=== PATIENT | female | born 1995 | race Caucasian/White ===

== ENCOUNTER 2020-12-21 22:15 | Outpatient (CLI) | payer MEDICAID, SELFPAY ==
[2020-12-21 22:15] VITALS: BMI 27.6
[2020-12-21 22:41] VITALS: TEMP 37.3
[2020-12-21 22:42] VITALS: BP 117/67; PULSE 94
--- NOTE | 2020-12-21 23:01 | USR_ITS ---
PROCEDURE INFORMATION: Exam: US , Limited Exam date and time: 12/21/2020 11:21 PM Age: 25 years old Clinical indication: complicated by abdominal or pelvic pain; Lower; Third trimester; Gestational age or lmp: 37 week 5 days; ; Additional info: Check caitie only TECHNIQUE: Imaging protocol: Real-time ultrasound of the maternal uterus with image documentation. Exam focused on the clinical indication. COMPARISON: US OB 1st Trimest <14 Wk [id number] 02/08/2014 8:03 PM FINDINGS: Gestation: A single viable intrauterine gestation is present. presentation: Cephalic presentation. heart rate: heart rate equals 160 BPM. Placenta: Grade 2 placenta located anteriorly. Amniotic fluid index: CAITIE equals 6.5 cm. MATERNAL: Cervix: The cervix measures 3.5 cm in length. US/US OB limited [id number] IMPRESSION: 1. Single intrauterine fetus in the cephalic position with a heart rate of 160 BPM. 2. The CAITIE is low at 6.5 cm.
[2020-12-21 23:12] LABS: Nitrazine Paper, PH Negative
[2020-12-21 23:35] VITALS: BP 102/55; PULSE 77
[2020-12-22] VITALS: RESP 16; TEMP 36.7
[2020-12-22 00:15] VITALS: BP 102/55; PULSE 77; RESP 16; TEMP 36.7
--- NOTE | 2020-12-22 15:13 | PM.ACPR ---
Procedure/Consent Procedure Narrative: NONSTRESS TEST: Place of test: [facility]-L&D Indication: 25-year-old 3 para 2-0-0-2 at 37 weeks Date and time of test: 12/21/2020-11:30 PM Baseline: 135 Variability: moderate variability Accelerations: Accelerations present Decelerations: No decelerations Tocometry: No contractions INTERPRETATION: NST reactive, continue kick counts
== END 2020-12-22 00:15 | disposition home or self-care (01) ==
LOC: OPOB 22:18 → OBGYN 12-22 00:07
PROVIDERS: Obstetrics & Gynecology; Visit Provider Obstetrics & Gynecology
DX: O26.899 Other specified pregnancy related conditions, unspecified trimester (principal); Z3A.00 Weeks of gestation of pregnancy not specified; N89.8 Other specified noninflammatory disorders of vagina; R10.9 Unspecified abdominal pain
CPT/HCPCS: 59025; 76815; 83986; 99211

== ENCOUNTER 2020-12-30 07:20 | Inpatient (IN) | payer MEDICAID, SELFPAY ==
[2020-12-30] VITALS (51 sets, daily range): BP systolic 100–140; BP diastolic 53–79; PULSE 51–88; RESP 16; TEMP 35.9–37; O2SAT 92–100; BMI 28.3
[2020-12-30] MEDS: lactated ringers 1,000 ML 999 ML IV ×2 (07:27→08:47)
[2020-12-30] MEDS: ampicillin 2,000 MG in sodium chloride 0.9% (plus) 50 ML 100 MG IV (07:34)
[2020-12-30 07:43] LABS: Basophils # 0.1 10^3/uL (0.0-0.1); Basophils % 0.3 %; Eosinophils # 0.1 10^3/uL (0.0-0.8); Eosinophils % 0.8 %; Hemoglobin 12.3 g/dL (11.5-15.3); Lymphocytes # 2.1 10^3/uL (0.8-4.8); Lymphocytes % 12.4 %; Mean Corpuscular HGB Conc 32.4 g/dL (30.0-36.0); Mean Corpuscular Hemoglobin 29.9 pg (28.0-34.0); Mean Corpuscular Volume 92.5 fL (81-99); Mean Platelet Volume 9.7 fL (7.4-10.4); Monocytes # 0.9 10^3/uL (0.2-0.9); Monocytes % 5.5 %; Neutrophils # 13.71 10^3/uL (1.8-7.7); Neutrophils % 79.6 %; Nucleated Red Blood Cells % 0 %; Platelet Count 408 10^3/cmm (130-400); Red Blood Count 4.11 10^6/uL (4.1-5.3); Red Cell Distribution Width 14.1 % (12.1-15.1); White Blood Count 17.2 10^3/uL (4.0-10.0)
[2020-12-30 07:49] LABS: Amphetamines Screen Urine Negative (Negative); Barbiturates Screen Urine Negative (Negative); Benzodiazepines Screen Urine Negative (Negative); Cocaine Screen Urine Negative (Negative); Opiate Screen Urine Negative (Negative); PCP Screen Urine Negative (Negative); THC Screen Urine Positive (Negative)
--- NOTE | 2020-12-30 08:15 | P.ANESASSM_ITS ---
Pre-Anesthetic Assessment Pre-Anesthetic Assessment: Height/Weight: Height 1.6 m Weight 72.575 kg Temp Pulse BP Pulse Ox 96.6 F L 77 109/55 100 12/30/20 08:23 12/30/20 08:48 12/30/20 08:48 12/30/20 08:43 Preop Diagnosis: IUP Was Beta Calli taken within 24 hours: N/A Was Clonidine taken within 24 hours: N/A Social: Social History: No alcohol and No tobacco Exam: Pre-Anes Outpt Exam: alert, oriented x 3, clear to auscultation bilaterally and regular rate & rhythm Airway: Submandibular: WNL Cervical ROM: WNL MP: 1 History/ROS: No significant history except as noted Pulmonary: Pulmonary: None reported CV/HEM: CV/HEM: None reported : : None reported Hepatic: Hepatic: None reported GI: GI: None reported Metabolic: Metabolic: None reported Musc/skel: Musc/skel: None reported Neuropsych: Neuropsych: None reported Anesthetic Plan: ASA status: 1 Anesthesia: Anesthesia Evaluation Risk of > 500 ml blood loss (7ml/kg in children): No Meds/Allergies Current Medications: Current Medications Generic Name Dose Route Start Last Admin Trade Name Freq PRN Reason Stop Dose Admin Lactated Ringer's 1,000 mls @ 999 m ls/hr 12/30/20 07:17 12/30/20 08:47 Lactated Ringers IV 999 mls/hr .Q1H1M PRN Administration BLEEDING Lactated Ringer's 1,000 mls @ 999 m ls/hr 12/30/20 07:17 12/30/20 07:27 Lactated Ringers IV 999 mls/hr .Q1H1M PRN Administration Per L&D Rescitati on Protocol Ropivacaine 200 mg in 100 mls @ 13 mls/hr 12/30/20 07:30 12/30/20 08:48 Naropin Premix EPIDURAL 13 mls/hr .Q7H42M PREET Administration [facility] Anesthesia Female Reproductive History: : 3 Data Anesthesia CBC & Chem 7: 12/30/20 07:20 Other Labs: Laboratory Results - last 48 hr 12/30/20 12/30/20 12/30/20 07:00 07:20 07:20 WBC 17.2 H RBC 4.11 Hgb 12.3 Hct 38.0 MCV 92.5 MCH 29.9 MCHC 32.4 RDW 14.1 Plt Count 408 H MPV 9.7 Neut % (Auto) 79.6 Lymph % (Auto) 12.4 [place] % (Auto) 5.5 Eos % (Auto) 0.8 Baso % (Auto) 0.3 Neut # (Auto) 13.71 H Lymph # (Auto) 2.1 [place] # (Auto) 0.9 Eos # (Auto) 0.1 Baso # (Auto) 0.1 Nucleated RBC % (auto) 0 Nucleated RBCs # 0.0 Urine Opiates Screen Negative Ur Barbiturates Screen Negative Ur Phencyclidine Scrn Negative Ur Amphetamines Screen Negative U Benzodiazepines Scrn Negative Urine Cocaine Screen Negative U Marijuana (THC) Screen Positive H Blood Type O Positive Rho(D) Type Positive / 4+ Antibody Screen Negative Cardiac Studies: No Data to Display
--- NOTE | 2020-12-30 08:52 | ANES.PROC ---
Anesthesia Procedures Procedure/Date: 12/30/20 Epidural: Time Out Performed: Yes Consents Signed: Procedure Consent Consent: requested by attending/covering physician Lumbar Level: L3-L4 Epidural position: sitting Epidural procedure: sterile prep of area, 18 g needle, negative for paresthesia passed, neg for paresthesia, test dose given, 1.5% xylocaine 1:200k epi, placed PCEA, no systemic response, sterile dressing applied, L.U.D. no apparent complications and 0.2% Ropiavacaine @ mls/hr (13) Additional Comments: Fentanyl 100mcg per epidural and PF 2% Lidocaine 10cc. patient cervical check 9cm
--- NOTE | 2020-12-30 10:43 | PC.NURSE ---
Nurse practitioner from Dr. Bishop's office confirmed patient was GBS negative in office. Patient is O+/anti -
[2020-12-30] MEDS: oxytocin 30 UNIT/500 ML BAG 600 UNIT IV (11:13)
--- NOTE | 2020-12-30 11:27 | PM.DELIVERY ---
Delivery Note: Date of delivery: December 30, 2020 Pre-delivery diagnoses: Term Oligohydramnios Drug use during Smoking in Post-delivery diagnoses: Same as above Procedure: Spontaneous vaginal delivery Op report anesthesia: Epidural Delivering Physician: Steve Painting MD Estimated blood loss (mL): 300 Findings: Full term Male infant, nuchal cord x1, Apgars 8/9, weight 3415 g Delivery: The patient was noted to be complete and pushing, so was placed in the dorsal lithotomy position, prepped and draped in the usual sterile fashion for a vaginal delivery. Pt. Noted to have epidural anesthesia. The patient delivered a viable at 38 weeks male infant weighing 3415 g with scores of 8 and 9 at one and five minutes, respectively. The vertex was delivered spontaneously over an intact perineum. The patient was asked to push and the head delivered spontaneously in the [place] position, over an intact perineum. A nuchal cord was checked and 1 noted, and relieved around head as necessary. The anterior shoulder delivered easily and the posterior shoulder followed. The remainder of the was easily delivered and the oropharynx and nasopharynx was bulb suctioned. The was noted to have spontaneous cry and spontaneous movement of all four extremities. The cord was clamped x 2 and cut and noted to have 2 arteries and one vein. The was passed to the mother's abdomen where nursing personnel were in attendance. Cord blood sample was then obtained. The placenta delivered intact spontaneously and the uterus was explored. 20 units of Pitocin was placed in the IV bag to firm the uterus. Examination of the cervix and vaginal vault did not reveal any lacerations. A vaginal pack was then placed. Examination of the perineum showed no lacerations. The vaginal pack was then removed. The patient tolerated this procedure well, and recovered in L&D with her in their LDR room. All sponge and needle counts were correct. Coding Level of Care Code Acute Computer Designer for Bailey Mendoza
[2020-12-30] MEDS: ibuprofen 800 mg tablet PO ×2 (14:01→20:43)
[2020-12-30] MEDS: benzocaine-menthol 78 gm Canister 1 SPRAY TOPICAL (14:01)
[2020-12-30] MEDS: lanolin oint 7 gm 1 APPLIC TOPICAL (14:01)
--- NOTE | 2020-12-30 15:48 | PC.NURSE ---
Patient had been instructed multiple times to call health science writer when she desired to go to the bathroom. Motor Overhauler in room at 1445 and patient states she wasn't able to stand yet and did not have the urge to go to the bathroom. Motor Overhauler back to patient's room to check on patient at 1532 and patient not in bed, significant other reports patient had run out to the truck to get something. Motor Overhauler out to desk and patient is walking back in doors at the front. Patient educated about the importance of having staff assist her to the bathroom the first couple of times as well as not leaving the floor when she has an IV. Patient verbalized understanding. Full linen change performed at this time as well. Patient reports when she went to the bathroom she voided and had a bowel movement. Patient did not use hat.
--- NOTE | 2020-12-31 01:00 | PC.NURSE ---
Maternal recovery flow record not done at this time. RN in nursery assisting with IV placement on infant. Pt then to nursery to be with .
[2020-12-31 01:42] LABS: Hematocrit 32.6 % (37.0-47.0); Hemoglobin 10.7 g/dL (11.5-15.3); Mean Corpuscular HGB Conc 32.8 g/dL (30.0-36.0); Mean Corpuscular Hemoglobin 30.3 pg (28.0-34.0); Mean Corpuscular Volume 92.4 fL (81-99); Mean Platelet Volume 9.6 fL (7.4-10.4); Platelet Count 357 10^3/cmm (130-400); Red Blood Count 3.53 10^6/uL (4.1-5.3); Red Cell Distribution Width 14.3 % (12.1-15.1); White Blood Count 17.7 10^3/uL (4.0-10.0)
--- NOTE | 2020-12-31 01:50 | PC.NURSE ---
Pt notified MD not giving Discharge orders at this time that he would come to unit in the A.M for Discharge. Pt states she is going to leave AMA. Pt educated on risks of leaving AMA and there is a potential insurance may not pay for the visit. Pt states understanding and request AMA paperwork.
--- NOTE | 2020-12-31 11:59 | P.DS_ITS ---
Discharge Providers SANDER AND POLISHER Date of Admission: 12/30/20 07:20 Date of Discharge: 12/31/20 Attending Provider at Admission: Steve Painting MD Attending Provider at Discharge: Steve Painting MD Reason for Visit Reason for Visit: ABDPAIN, Labor contractions Hospital Course Hospital Course Mrs. Doe 25-year-old female, with an intrauterine with an estimated gestational age at 38 weeks came to labor and delivery complaining of contractions. Upon examination she was found to be 5 to 6 cm dilated in active labor. For care, care with [facility]. complicated by drug abuse. Had a spontaneous vaginal delivery without complications. She delivered a male infant with 1 nuchal cord Apgars 8/9, with a weight of 3415 g. Doing recovery period the infant deteriorated and editor decided to transfer the infant to [place] on approximately 2 AM. The patient was informed that she will be discharged first thing in the morning but she decided to leave AMA. Information Peripartum Data: Delivery Method: Vaginal Discharge Data Data Completed and Pending: Labs from last 24 hours 12/31/20 01:32 WBC 17.7 H RBC 3.53 L Hgb 10.7 L Hct 32.6 L MCV 92.4 MCH 30.3 MCHC 32.8 RDW 14.3 Plt Count 357 MPV 9.6 Vitals: Last Vital Signs Temp 97.7 F 12/30/20 20:29 Pulse 57 L 12/30/20 20:30 Resp 16 12/30/20 11:40 BP 116/72 12/30/20 20:30 Pulse Ox 100 12/30/20 08:43 Discharge Plan Discharge Patient Disposition: Left Against Medical Advice Prescriptions: No Action + Iron tablet 1 tab PO DAILY RF: 0 Discharge Attestations SANDER AND POLISHER Time Spent in Discharge Care*: less than 30 min Coding Level of Care Code Acute Diesel Engine Mechanic Apprentice for Bailey Mendoza
[2021-01-02 17:47] VITALS: BP 151/80; PULSE 75
== END 2020-12-31 01:58 | disposition home or self-care (01) | DRG 806 ==
LOC: OBGYN 09:57 → OPOB 01-01 08:56
PROVIDERS: Admitting Provider Obstetrics & Gynecology; Visit Provider Obstetrics & Gynecology
DX: O99.324 Drug use complicating childbirth (principal); O41.03X0 Oligohydramnios, third trimester, not applicable or unspecified; Z37.0 Single live birth; O99.334 Smoking (tobacco) complicating childbirth; O69.81X0 Labor and delivery complicated by cord around neck, without compression, not applicable or unspecified; F17.200 Nicotine dependence, unspecified, uncomplicated; Z3A.38 38 weeks gestation of pregnancy
CPT/HCPCS: 36415; 59025; 59409; 80306; 83986; 85025; 85027; 86850; 86900; 99211; J0290; J2795; J3010

== ENCOUNTER → 2022-08-07 15:26 | Outpatient (BNVA) | payer MEDICAID, SELFPAY | PROVIDERS: Family Provider Family Medicine; PCP Family Medicine; Visit Provider Nurse Practitioner Family | DX: R50.9 Fever, unspecified (principal) | CPT/HCPCS: 87400 ==

== ENCOUNTER → 2024-03-08 15:37 | Outpatient (BNVA) | payer OTHER, SELFPAY | PROVIDERS: Family Provider Family Medicine; PCP Family Medicine; Visit Provider Psychiatry & Neurology Psychiatry | DX: F11.20 Opioid dependence, uncomplicated (principal); F15.10 Other stimulant abuse, uncomplicated; F41.1 Generalized anxiety disorder; F33.1 Major depressive disorder, recurrent, moderate | CPT/HCPCS: 80307 ==

== ENCOUNTER → 2024-07-11 13:23 | Outpatient (BNVA) | payer OTHER, SELFPAY | PROVIDERS: Family Provider Family Medicine; PCP Family Medicine; Visit Provider Psychiatry & Neurology Psychiatry | DX: F11.20 Opioid dependence, uncomplicated (principal); F15.10 Other stimulant abuse, uncomplicated; F41.1 Generalized anxiety disorder; F33.1 Major depressive disorder, recurrent, moderate; Z79.899 Other long term (current) drug therapy | CPT/HCPCS: 80307 ==

== ENCOUNTER 2024-07-13 10:00 | Inpatient (IN) | payer MEDICAID, SELFPAY ==
[2024-07-13] VITALS (31 sets, daily range): BP systolic 129–165; BP diastolic 71–96; PULSE 46–84; RESP 12–25; TEMP 36.7–37.1; O2SAT 96–100; BMI 20.3
--- NOTE | 2024-07-13 10:11 | XR_ITS ---
WS: [id number] Portable AP upright chest, 07/13/2024 Clinical Data: dyspnea/cough Comparison: None. Findings: No nodules, masses or effusions are seen. The heart is normal. The pulmonary vascularity is not increased. No pneumonia or pneumothorax is seen. Monitor leads are on the chest wall. XR/XR chest 1V portable [id number] Impression: Negative chest.
--- NOTE | 2024-07-13 10:13 | ECG_ITS ---
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 Measurements Intervals [place] Rate: 59 P: 48 PA: 147 QRS: 72 QRSD: 93 T: 62 QT: 459 QTc: 455 Interpretive Statements SINUS BRADYCARDIA WITH SINUS ARRHYTHMIA No previous ECG available for comparison Electronically Signed On 07-14-2024 21:29:59 SENIOR ACCOUNTING ASSOCIATE by Dora Noonan M.D. [id number]
--- NOTE | 2024-07-13 10:29 | ED_ITS ---
HPI - Chest Pain 2 General: Chief Complaint: Chest Pain Stated Complaint: Chest pain, Lt Arm Pain Time Seen by Provider: 07/13/24 10:10 History of Present Illness: 28-year-old female who presents emergenc y room with chest pain left arm pain. Complaining more focused of epigastric discomfort. She does drink alcohol regularly she drank at least 6 shots last night she states the pain is worse when she takes a deep breath she cannot eat or drink she been very nauseous and vomiting she denies any hematochezia melena hematemesis or coffee-ground was no dysuria urgency or frequency Associated symptoms: Deny abdominal pain, dyspnea or fever(s) Related Data Home Medications Medication Instructions Recorded Confirmed ibuprofen 200 mg tablet (Advil) 800 mg PO Q6H PRN Pain 07/13/24 07/13/24 Previous Rx's Medication Instructions Recorded buprenorphine 8 mg-naloxone 2 mg 1 tab sublingual BID #60 tabs 07/11/24 sublingual tablet trazodone 50 mg tablet 100 mg (2 x 50 mg) PO .HS PRN 07/11/24 insomnia #60 tabs Allergies Allergy/AdvReac Type Severity Reaction Status Date / Time No Known Allergies Allergy Verified 07/11/24 13:14 Review of Systems 2 Const: Denies: fever(s) or chills Card: Denies: chest pain Resp: Denies: dyspnea GI: Denies: abdominal pain : Denies: dysuria, urinary frequency or urinary urgency Musc: Denies: neck pain or back pain Skin/Breast: Denies: rash PFSH ED 2 PFSH: Medical History Psychiatric care Physical Exam 2 Const: COMMON NORMALS: no acute distress GENERAL APPEARANCE: cooperative and comfortable ORIENTATION/CONSCIOUSNESS: Yes awake, Yes oriented to person, Yes oriented to place and Yes oriented to time HENMT: COMMON NORMALS: normocephalic, atraumatic and hearing grossly normal bilaterally HEAD & SCALP: normocephalic and atraumatic Resp: COMMON NORMALS: normal respiratory effort, No retractions, No use of accessory muscles and clear to auscultation bilaterally AUSCULTATION: clear to auscultation bilaterally Cardio: COMMON NORMALS: regular rate, regular rhythm and No murmurs present (Cardio) RATE: regular rate RHYTHM: regular rhythm GI: COMMON NORMALS: No hepatosplenomegaly present AUSCULTATION: Yes normoactive bowel sounds PALPATION: Yes Tenderness to palpation present (GI) (Epigastric/right upper quadrant), No Guarding due to palpation present (GI) and Yes No hepatosplenomegaly present Extremity: COMMON NORMALS: normal to inspection, capillary refill normal, no clubbing, cyanosis or edema, no calf tenderness and no pedal edema Neuro: SENSORIUM/ORIENTATION: Yes oriented to person, Yes oriented to place and Yes oriented to time Skin: COMMON NORMALS: no rashes or lesions noted GENERAL SKIN EXAM: no rashes or lesions noted Course 2 Vital Signs: Vital signs: Vital Signs Temperature 98.3 F 07/13/24 10:01 Pulse Rate 62 07/13/24 15:24 Respiratory Rate 20 H 07/13/24 15:10 Blood Pressure 144/96 07/13/24 13:05 Pulse Oximetry 99 07/13/24 15:24 Oxygen Delivery Me thod Room Air 07/13/24 10:01 MDM - Chest Pain Medical Decision Making D-dimer was slightly elevated patient's most chronic chest pain EKG did not show any acute changes we ended up doing a CTA on the lower portion of the CTA. Pancreatic stranding was noted her lipase is 800 she did drink heavily last night will admit n.p.o. pain and nausea medications IV fluids. Diagnosis acute pancreatitis alcohol induced. Medical Records I reviewed the patient's medical records. Lab Data I reviewed the patient's lab results. 07/13/24 10:46 07/13/24 10:46 Radiology Impressions Chest X-Ray 07/13/24 10:11 Impression: Negative chest. Chest CTA 07/13/24 11:48 IMPRESSION: 1. No pulmonary embolism. 2. No RIGHT heart strain. 3. Findings of acute pancreatitis. Moderate amount of fluid surrounding an edematous enlarged pancreas. Fluid extends along the pararenal fascia, greatest on the LEFT. No encapsulated fluid collections. 4. Fluid extends between the gallbladder and the pancreatic head. Consider evaluation of the gallbladder to exclude cholelithiasis. Common bile duct does not appear enlarged on this examination. Laboratory Results WBC 14.31 10^3/uL (3.29-11.43) H 07/13/24 10:46 RBC 4.36 10^6/uL (3.85-5.65) 11/13/24 10:46 Hgb 13.80 g/dL (11.27-16.99) 07/13/24 10:46 Hct 42.0 % (36-47) 07/13/24 10:46 MCV 96.3 fl (85-98) 07/13/24 10:46 MCH 31.7 pg (27-33) 07/13/24 10:46 MCHC 32.9 g/dL (30-55) 07/13/24 10:46 RDW 12.7 % (12.1-15.1) 07/13/24 10:46 Plt Count 277 10^3/cmm (157-399) 07/13/24 10:46 MPV 9.2 fL (7.4-10.4) 07/13/24 10:46 Neut % (Auto) 85.6 % 07/13/24 10:46 Lymph % (Auto) 8.2 % 07/13/24 10:46 [place] % (Auto) 5.3 % 07/13/24 10:46 Eos % (Auto) 0.4 % 07/13/24 10:46 Baso % (Auto) 0.1 % 07/13/24 10:46 Neut # (Auto) 12.24 10^3/uL (1.8-7.7) H 07/13/24 10:46 Lymph # (Auto) 1.2 10^3/uL (0.8-4.8) 07/13/24 10:46 [place] # (Auto) 0.8 10^3/uL (0.2-0.9) 07/13/24 10:46 Eos # (Auto) 0.1 10^3/uL (0.0-0.8) 07/13/24 10:46 Baso # (Auto) 0.0 10^3/uL (0.0-0.1) 07/13/24 10:46 Nucleated RBC % (auto) 0 % 07/13/24 10:46 Nucleated RBCs # 0.0 /100WBC 07/13/24 10:46 D-Dimer 0.90 ug/mLFEU (0-0.59) H 07/13/24 10:46 Sodium 133 mmol/L (136-145) L 07/13/24 10:46 Potassium 3.8 mmol/L (3.5-5.1) 07/13/24 10:46 Chloride 99 mmol/L (98-107) 07/13/24 10:46 Carbon Dioxide 22 mmol/L (22-29) 07/13/24 10:46 Anion Gap 15.8 (5-19) 07/13/24 10:46 BUN 11 mg/dL (6-20) 07/13/24 10:46 Creatinine 0.5 mg/dL (0.5-0.9) 07/13/24 10:46 GFR Calculation 144.9 mL/min (90-130) H 07/13/24 10:46 Glucose 123 mg/dL (65-115) H 07/13/24 10:46 Calculated Osmolality 277 mOsm/kg (285-295) L 07/13/24 10:46 Calcium 8.6 mg/dL (8.5-10.5) 07/13/24 10:46 Total Bilirubin 0.3 mg/dL (0.15-1.2) 07/13/24 10:46 AST 18 U/L (0-32) 07/13/24 10:46 ALT 12 U/L (0-33) 07/13/24 10:46 Alkaline Phosphatase 83 U/L (35-105) 07/13/24 10:46 Troponin T Baseline < 6 ng/L (0-10) 07/13/24 10:46 Troponin T 120 Minute 6.00 ng/L (0-10) 07/13/24 12:45 Delta Troponin T 0.90427 ABS# (0-10) 07/13/24 12:45 Total Protein 7.0 g/dL (6.6-8.7) 07/13/24 10:46 Albumin 4.3 g/dL (3.5-5.2) 07/13/24 10:46 Globulin 2.7 g/dL (1.3-4.6) 07/13/24 10:46 Lipase 800 U/L (13-60) H 07/13/24 12:45 Coronavirus (PCR) Negative (Negative) 07/13/24 11:22 Influenza A (PCR) Negative (Negative) 07/13/24 11:22 Influenza Type B (PCR) Negative (Negative) 07/13/24 11:22 RSV (PCR) Negative (Negative) 07/13/24 11:22 All radiology interpretation(s) finalized by discharge Discharge Plan Discharge Patient Disposition: Admitted As Inpatient Admit Provider: Juani Fisher Clinical Impression: Pancreatitis, Alcohol abuse Condition: Stable Coding Level of Care Code ED Technical Sales Associate for Bailey Mendoza
[2024-07-13] MEDS: ketorolac 30 mg/mL INJ IVP (10:50)
[2024-07-13 10:54] LABS: Basophils % 0.1 %; Eosinophils # 0.1 10^3/uL (0.0-0.8); Eosinophils % 0.4 %; Lymphocytes # 1.2 10^3/uL (0.8-4.8); Lymphocytes % 8.2 %; Mean Corpuscular HGB Conc 32.9 g/dL (30-55); Mean Corpuscular Hemoglobin 31.7 pg (27-33); Mean Corpuscular Volume 96.3 fl (85-98); Mean Platelet Volume 9.2 fL (7.4-10.4); Monocytes # 0.8 10^3/uL (0.2-0.9); Monocytes % 5.3 %; Neutrophils # 12.24 10^3/uL (1.8-7.7); Neutrophils % 85.6 %; Nucleated Red Blood Cells % 0 %; Platelet Count 277 10^3/cmm (157-399); Red Blood Count 4.36 10^6/uL (3.85-5.65); Red Cell Distribution Width 12.7 % (12.1-15.1); White Blood Count 14.31 10^3/uL (3.29-11.43)
[2024-07-13 11:13] LABS: Alanine Aminotransferase 12 U/L (0-33); Albumin Level 4.3 g/dL (3.5-5.2); Alkaline Phosphatase 83 U/L (35-105); Anion Gap 15.8 (5-19); Aspartate Amino Transferase 18 U/L (0-32); Blood Urea Nitrogen 11 mg/dL (6-20); Calcium 8.6 mg/dL (8.5-10.5); Carbon Dioxide 22 mmol/L (22-29); Chloride 99 mmol/L (98-107); Creatinine Clr Calc Pharmacy 135.8482; Globulin 2.7 g/dL (1.3-4.6); Glomerular Filtration Rate 144.9 mL/min (90-130); Glucose 123 mg/dL (65-115); Osmolality Calculated 277 mOsm/kg (285-295); Potassium 3.8 mmol/L (3.5-5.1); Sodium 133 mmol/L (136-145); Total Bilirubin 0.3 mg/dL (0.15-1.2)
[2024-07-13] MEDS: dexamethasone 10 mg/mL INJ IM (11:24)
--- NOTE | 2024-07-13 11:48 | CT_ITS ---
WS: [id number] CT CHEST ANGIOGRAPHY WITH REFORMATS HISTORY: Chest pain shortness of breath elevated D-dimer TECHNIQUE: Contiguous axial images are obtained through the chest during arterial injection of intrav enous contrast. Images are reconstructed to evaluate the pulmonary arteries. MIP imaging also reviewe d. All CT scans at [facility] use at least one of these dose optimization techniques: automat ed exposure control; mA and/or kV adjustment per patient size (includes targeted exams where dose is matched to clinical indication); or iterative reconstruction. CONTRAST: Omnipaque 350; 100 mL IV. DLP: 284.29 mGy.cm COMPARISON: None available. Normal opacification of the pulmonary arteries. No filling defects or pulmonary emboli. No RIGHT hear t strain. Normal size aorta. No mediastinal or hilar adenopathy. Small hiatal hernia. Lungs are clear and well aerated. No pneumonia. No pleural effusion. Imaging through the upper abdomen demonstrates moderate amount of fluid surrounding the visualized pa ncreas. There is fluid extending along the pararenal fascia, LEFT greater than RIGHT. Pancreas is enl arged and edematous. No well encapsulated fluid collections. No osseous destruction. CT/CT angio chest PE protcl [id number] IMPRESSION: 1. No pulmonary embolism. 2. No RIGHT heart strain. 3. Findings of acute pancreatitis. Moderate amount of fluid surrounding an natasha matous enlarged pancreas. Fluid extends along the pararenal fascia, greatest on the LEFT. No encapsulated fluid collections. 4. Fluid extends between the gallbladder and the pancreatic head. Consider aundrea luation of the gallbladder to exclude cholelithiasis. Common bile duct does not appear enlarged on this examination.
[2024-07-13 12:08] LABS: Covid PCR NEGATIVE (Negative); Influenza A NEGATIVE (Negative); Influenza B NEGATIVE (Negative); Respiratory Syncytial Virus Ce NEGATIVE (Negative)
[2024-07-13 12:08] LABS: Troponin(5th) Baseline < 6 ng/L (0-10)
[2024-07-13] MEDS: iohexol 350 mg/mL 500 mL Btl (per mL) IV (12:27)
[2024-07-13] MEDS: sodium chloride 0.9% 1,000 ML 999 ML IV (13:10)
[2024-07-13] MEDS: morphine 4 mg/mL SDV 1 mL IVP (13:10)
[2024-07-13] MEDS: ondansetron 2 mg/ML SDV 2 mL 4 MG IVP (13:10)
[2024-07-13 13:20] LABS: Troponin 5 2HR Delta 0.00001 ABS# (0-10)
[2024-07-13 13:26] LABS: Lipase 800 U/L (13-60)
--- NOTE | 2024-07-13 13:48 | ECG_ITS ---
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 Measurements Intervals [place] Rate: 51 P: -39 IN: 123 QRS: 79 QRSD: 91 T: 68 QT: 475 QTc: 439 Interpretive Statements SINUS BRADYCARDIA Compared to ECG 07/13/2024 10:13:22 Sinus arrhythmia no longer present Electronically Signed On 07-17-2024 21:01:03 PRODUCT SPECIALIST by Dora Noonan M.D. [id number]
--- NOTE | 2024-07-13 14:27 | P.HP_ITS ---
Providers/Chief Complaint 2 Primary Care Provider: Alex Johnson Chief Complaint: Chest pain, Lt Arm Pain History of Present Illness Gretta Doe is a 28 year old female with past medical history of depression, methamphetamine use disorder, opiate use disorder on Suboxone now presented to the hospital with abdominal pain. She says the pain started this morning at 5 AM. She has been very nauseous however has not vomited. She states the pain is enough that she does not want to go home. I assured her that she was gaining admission at this time and we are not planning to send her home anyway. No other complaints at this time. Medications/Allergies Home Medications Medication Instructions Recorded Confirmed Last Taken Type buprenorphine 8 mg-naloxone 2 mg 1 tab sublingual BID #60 tabs 07/11/24 07/13/24 07/13/24 Rx sublingual tablet trazodone 50 mg tablet 100 mg (2 x 50 mg) PO .HS PRN 07/11/24 07/13/24 Unknown Rx insomnia #60 tabs ibuprofen 200 mg tablet (Advil) 800 mg PO Q6H PRN Pain 07/13/24 07/13/24 07/13/24 07:30 History Allergies Allergy/AdvReac Type Severity Reaction Status Date / Time No Known Allergies Allergy Verified 07/11/24 13:14 PFSH Acute 2 PFSH: Medical History (Updated 07/13/24 @ 14:35 by Juani Fisher MD) Psychiatric care Vitals/I&O/Wt Last Vital Signs Temp 98.3 F 07/13/24 10:01 Pulse 59 L 07/13/24 14:15 Resp 16 07/13/24 14:02 BP 144/96 07/13/24 13:05 Pulse Ox 99 07/13/24 14:15 O2 Del Method Room Air 07/13/24 10:01 Weight last 48 hrs Weight 52.163 kg Physical Exam 2 Narrative: General: Alert oriented x3 HEENT: Normocephalic, atraumatic, EOMI, Cardio: Regular rate rhythm, normal S1-S2 Respiratory: Clear to auscultation bilaterally GI: Abdomen soft, mildly tender to palpation in epigastric region. Extremities: within Normal limits Data 07/13/24 10:46 07/13/24 10:46 A&P Assessment and plan (1) Generalized anxiety disorder: (2) Major depressive disorder, recurrent, moderate: (3) Opioid use disorder, severe, on maintenance therapy, dependence: (4) Methamphetamine use disorder, mild: (5) Pancreatitis: Plan #Acute pancreatitis #Possible cholelithiasis? #Opioid use disorder on Suboxone #History of methamphetamine use disorder #Anxiety/depression ? Continue on LR 150 cc/h ? Check gallbladder ultrasound, CT abdomen pelvis ? Initially lipase 800. No need to trend ? Keep strictly n.p.o. at this time we will gradually transition to clear liquid as patient clinically improves ? Check lipid profile, triglycerides ? Check CBC CMP in a.m. ?Continue Suboxone ? WBC 14,000 possibly reactive however infection cannot be ruled out. D-dimer elevated, CTA chest negative for PE.. ? Morphine 4 mg IV has not helped. Will place on Dilaudid 0.5 every 4 hours as needed. Full code DVT prophylaxis: Heparin subcu. Attestations 2 Medical Necessity Statement*: Pancreatitis, greater than 2 midnight stay Diagnoses Generalized anxiety disorder F41.1 Major depressive disorder, recurrent, moderate F33.1 Opioid use disorder, severe, on maintenance therapy, dependence F11.20 Methamphetamine use disorder, mild F15.10 Pancreatitis K85.90
--- NOTE | 2024-07-13 15:11 | USR_ITS ---
PROCEDURE INFORMATION: Exam: US Abdomen, Limited; Right Upper Quadrant Exam date and time: 07/13/2024 2:32 PM Age: 28 years old Clinical indication: Abdominal pain; Additional info: R/O stones TECHNIQUE: Imaging protocol: Real time ultrasound of the abdomen with image documentation. Limited exam focused on the right upper quadrant. COMPARISON: US OB limited [id number] 12/21/2020 11:26 PM FINDINGS: Liver: Normal. No masses. The right hepatic lobe measures 16.3 cm in length. Gallbladder: Normal. No gallstones. There is no gallbladder wall thickening. Biliary ducts: Normal. No stones. No dilation. Common bile duct measures 0.4 cm. Pancreas: Visualized pancreas is unremarkable. Right kidney: The right kidney measures 9.3 cm in length. No hydronephrosis. Aorta: The proximal aorta measures 1.6 cm. Inferior vena cava: The upper IVC measures 1.7 cm. Portal venous: Main portal vein is patent and measures 0.6 cm near the hilum. Hepatopetal flow. However, there also appears to be some pulsatile flow. US/US gall bladder [id number] IMPRESSION: 1. No acute findings. 2. Possible pulsatile flow in the main portal vein which can be seen with tricuspid regurgitation among other etiologies.
--- NOTE | 2024-07-13 15:11 | CTR_ITS ---
PROCEDURE INFORMATION: Exam: CT Abdomen And Pelvis Without Contrast Exam date and time: 07/13/2024 4:22 PM Age: 28 years old Clinical indication: Abdominal pain; Patient HX: PT had pe chest study earlier today; Additional info: Cholecystitis TECHNIQUE: Imaging protocol: Computed tomography of the abdomen and pelvis without contrast. Radiation optimization: All CT scans at this facility use at least one of these dose optimization techniques: automated exposure control; mA and/or kV adjustment per patient size (includes targeted exams where dose is matched to clinical indication); or iterative reconstruction. COMPARISON: 1. US gall bladder [id number] 07/13/2024 2:[address] angio chest PE protcl [id number] 07/13/2024 12:25 PM RADIATION DOSE METRICS: Total DLP (mGy-cm): 467.11 FINDINGS: Lungs: Mild bibasilar atelectasis. Liver: Normal. No mass. Gallbladder and biliary ducts: Normal. No calcified stones. No ductal dilation. Pancreas: The pancreas appears somewhat prominent with diffuse peripancreatic fluid and fat stranding. No loculated fluid collections are visualized along the pancreas. Small volume fluid tracks from the pancreas along the paracolic gutters bilaterally into the lower abdomen with a trace amount of fluid seen in the pelvis. Spleen: Normal. No splenomegaly. Adrenal glands: Normal. No mass. Kidneys and ureters: Excreted contrast seen in the renal collecting systems from prior contrast administration. No hydronephrosis. Stomach and bowel: Unremarkable. No obstruction. No mucosal thickening. Appendix: No evidence of appendicitis. Intraperitoneal space: Unremarkable. No free air. Vasculature: Unremarkable. No abdominal aortic aneurysm. Lymph nodes: Unremarkable. No enlarged lymph nodes. Urinary bladder: Unremarkable as visualized. Reproductive: Dominant left ovarian follicle. The uterus is within normal limits. Bones/joints: Unremarkable. No acute fracture. Soft tissues: Unremarkable. CT/CT abdomen pelvis wo con [id number] IMPRESSION: 1. Findings compatible with acute interstitial edematous pancreatitis. No evidence of necrotizing pancreatitis or peripancreatic abscess. 2. Small volume fluid in the abdomen and pelvis likely secondary to pancreatitis.
[2024-07-13 16:50] LABS: Lactic Sepsis W/Reflex 0.7 mmol/L (0.5-2.2)
[2024-07-13] MEDS: lactated ringers 1,000 ML 150 ML IV ×2 (16:54→23:12)
[2024-07-13] MEDS: pantoprazole 40 mg SDV IVP (16:54)
[2024-07-13] MEDS: heparin 5,000 unit/mL INJ 1 mL 5000 UNIT SUBCUT (16:55)
[2024-07-13 17:15] LABS: Chol HDL Ratio 2.24 mg/dL (0.0-4.40); Cholesterol 186 mg/dL (0-200); HDL Cholesterol 83 mg/dL (60-100); LDL Cholesterol Calculated 83 mg/dL (50-129); Triglycerides 100 mg/dL (0-150)
[2024-07-13] MEDS: NON-FORMULARY MEDICATION (Buprenorphine-Naloxone 8-2 mg tablet, sublingual) 1 EACH SUBLINGUAL (17:29)
[2024-07-13 17:48] LABS: Troponin 5 6HR Delta 0.00001 ng/L (0-12)
--- NOTE | 2024-07-13 17:48 | ECG_ITS ---
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 Measurements Intervals [place] Rate: 58 P: -69 [place]: 123 QRS: 67 QRSD: 94 T: 55 QT: 449 QTc: 443 Interpretive Statements JUNCTIONAL BRADYCARDIA/ ectopic atrial rhythm ABNORMAL RHYTHM ECG Compared to ECG 07/13/2024 14:18:10 Sinus bradycardia no longer present Electronically Signed On 07-17-2024 21:01:38 PUBLIC SPEAKING PROFESSOR by Dora Noonan M.D. [email or web address]
[2024-07-13] MEDS: HYDROmorphone 1 mg/mL INJ 1 mL 0.5 MG IVP (19:59)
[2024-07-14] VITALS (14 sets, daily range): BP systolic 128–150; BP diastolic 61–91; PULSE 65–104; RESP 14–18; TEMP 36.8–37.1; O2SAT 94–98
[2024-07-14] MEDS: HYDROmorphone 1 mg/mL INJ 1 mL 0.5 MG IVP ×4 (00:13→14:43)
[2024-07-14] MEDS: ondansetron 2 mg/ML SDV 2 mL 4 MG IVP ×2 (03:57→19:24)
[2024-07-14] MEDS: heparin 5,000 unit/mL INJ 1 mL 5000 UNIT SUBCUT ×2 (03:57→16:23)
[2024-07-14 05:04] LABS: Basophils % 0.2 %; Hematocrit 42.8 % (36-47); Lymphocytes # 0.7 10^3/uL (0.8-4.8); Lymphocytes % 5.8 %; Mean Corpuscular HGB Conc 32.2 g/dL (30-55); Mean Corpuscular Volume 96.2 fl (85-98); Mean Platelet Volume 9.2 fL (7.4-10.4); Monocytes # 0.9 10^3/uL (0.2-0.9); Neutrophils % 86.7 %; Nucleated Red Blood Cells % 0 %; Platelet Count 262 10^3/cmm (157-399); Red Blood Count 4.45 10^6/uL (3.85-5.65); Red Cell Distribution Width 12.8 % (12.1-15.1); White Blood Count 12.79 10^3/uL (3.29-11.43)
[2024-07-14] MEDS: lactated ringers 1,000 ML 150 ML IV ×2 (05:20→12:25)
[2024-07-14 05:28] LABS: Alanine Aminotransferase 8 U/L (0-33); Albumin Level 3.6 g/dL (3.5-5.2); Alkaline Phosphatase 71 U/L (35-105); Anion Gap 16.4 (5-19); Aspartate Amino Transferase 16 U/L (0-32); Blood Urea Nitrogen 10 mg/dL (6-20); Carbon Dioxide 19 mmol/L (22-29); Chloride 102 mmol/L (98-107); Globulin 2.5 g/dL (1.3-4.6); Glomerular Filtration Rate 187.4 mL/min (90-130); Glucose 118 mg/dL (65-115); Magnesium 1.7 mg/dL (1.7-2.3); Osmolality Calculated 276 mOsm/kg (285-295); Phosphorus 3.5 mg/dL (2.5-4.5); Potassium 4.4 mmol/L (3.5-5.1); Sodium 133 mmol/L (136-145); Total Bilirubin 0.3 mg/dL (0.15-1.2); Total Protein 6.1 g/dL (6.6-8.7)
[2024-07-14] MEDS: NON-FORMULARY MEDICATION (Buprenorphine-Naloxone 8-2 mg tablet, sublingual) 1 EACH SUBLINGUAL (08:13)
--- NOTE | 2024-07-14 16:18 | P.PN_ITS ---
Subjective 2 Subjective: Pain is uncontrolled. Patient is crying in the room. States that it hurts when she tries to take a deep breath. Medications: Reviewed: Yes Vitals/I&O/Wt Last Vital Signs Temp 98.7 F 07/14/24 15:28 Pulse 98 07/14/24 15:34 Resp 16 07/14/24 15:34 BP 150/91 07/14/24 15:28 Pulse Ox 97 07/14/24 15:34 O2 Del Method Room Air 07/14/24 15:34 07/14/24 07/14/24 07/14/24 06:59 14:59 22:59 Intake Total 1865 / 2865 1000 / 1000 Balance 1865 / 2865 1000 / 1000 Weight last 48 hrs Weight 74.435 kg Weight 52.163 kg Weight 52.163 kg Physical Exam 2 Narrative: General: Crying because of pain in the epigastric region. Radiating into the back and down either side today. HEENT: PERRLA, pupils bilaterally equal and reactive, pallors not present Chest: Normal vesicular breath sounds, no added sounds, equal good air entry bilaterally CVS: S1-S2 regular, no murmurs, no tachycardia, no gallops, no rubs Abdomen: Soft, tender to palpation over epigastric region, right upper and lower quadrants. Data 07/14/24 04:56 07/14/24 04:56 Micro: Microbiology 07/13/24 16:05 Blood Culture - Preliminary Blood SPECIMEN COLLECTED 07/13/24 16:14 Blood Culture - Preliminary Blood SPECIMEN COLLECTED A&P Assessment and plan (1) Generalized anxiety disorder: (2) Major depressive disorder, recurrent, moderate: (3) Opioid use disorder, severe, on maintenance therapy, dependence: (4) Methamphetamine use disorder, mild: (5) Pancreatitis: Plan #Acute pancreatitis #Possible cholelithiasis? #Opioid use disorder on Suboxone #History of methamphetamine use disorder #Anxiety/depression ? Continue on LR 150 cc/h ? Check gallbladder ultrasound, CT abdomen pelvis ? Initially lipase 800. No need to trend ? Keep strictly n.p.o. at this time we will gradually transition to clear liquid as patient clinically improves ? Check lipid profile, triglycerides ? Check CBC CMP in a.m. ?Continue Suboxone ? WBC 14,000 possibly reactive however infection cannot be ruled out. D-dimer elevated, CTA chest negative for PE.. ? Morphine 4 mg IV has not helped. Will place on Dilaudid 0.5 every 4 hours as needed. Full code DVT prophylaxis: Heparin subcu. 07/14/2024. Patient complains of significant pain. She is crying in pain. Has not attempted to take any p.o. intake. Does not wish to try even sips of water today. Started Suboxone overnight however has not had much significant difference. Increasing Dilaudid from 0.5 mg every 4 hours to 1 mg IV every 4 hours. Suspect that patient does not need higher dose of opiates because of prior tolerance. Change fluids to D5 normal saline at 150 cc/h. Added incentive spirometer to minimize risk of atelectasis and possible pneumonia developing as a complication. Ultrasound of the gallbladder was completed which did not show any acute findings. Leukocytosis at 12.79, downtrending, no localizing signs or symptoms of infection at this time. Pancreatitis appears triggered by binge alcohol drinking the night prior. Normal triglycerides. Attestations 2 Medical Necessity Statement*: Needs continued admission for management of acute pancreatitis, inadequate pain control, need for ongoing IV fluids. Coding Level of Care Code Acute Code for Chg Fwd High MDM includes number and complexity of problems actively addressed during encounter, amount and/or complexity of data reviewed/ordered and described risk of complication, morbidity or mortality of management as documented Diagnoses Generalized anxiety disorder F41.1 Major depressive disorder, recurrent, moderate F33.1 Opioid use disorder, severe, on maintenance therapy, dependence F11.20 Methamphetamine use disorder, mild F15.10 Pancreatitis K85.90
[2024-07-14] MEDS: pantoprazole 40 mg SDV IVP (16:24)
[2024-07-14] MEDS: buprenorphine-naloxone 4-1 mg Film 2 EACH SUBLINGUAL (17:45)
[2024-07-14] MEDS: dextrose 5%-sod chloride 0.9% 1,000 ML 125 ML IV (19:23)
[2024-07-14] MEDS: HYDROmorphone 1 mg/mL INJ 1 mL IVP ×2 (19:24→23:40)
[2024-07-15] VITALS (16 sets, daily range): BP systolic 130–147; BP diastolic 82–96; PULSE 98–119; RESP 14–19; TEMP 36.9–37.6; O2SAT 93–97
[2024-07-15] MEDS: heparin 5,000 unit/mL INJ 1 mL 5000 UNIT SUBCUT ×2 (01:54→14:39)
[2024-07-15] MEDS: HYDROmorphone 1 mg/mL INJ 1 mL IVP ×9 (01:54→23:18)
[2024-07-15] MEDS: dextrose 5%-sod chloride 0.9% 1,000 ML 125 ML IV ×3 (02:40→17:14)
[2024-07-15 05:07] LABS: Basophils % 0.1 %; Eosinophils % 0.1 %; Lymphocytes # 0.9 10^3/uL (0.8-4.8); Lymphocytes % 8.5 %; Mean Corpuscular HGB Conc 33.3 g/dL (30-55); Mean Corpuscular Hemoglobin 31.4 pg (27-33); Mean Corpuscular Volume 94.5 fl (85-98); Mean Platelet Volume 9.4 fL (7.4-10.4); Monocytes # 0.7 10^3/uL (0.2-0.9); Neutrophils # 8.65 10^3/uL (1.8-7.7); Neutrophils % 83.9 %; Nucleated Red Blood Cells % 0 %; Platelet Count 244 10^3/cmm (157-399); Red Blood Count 4.55 10^6/uL (3.85-5.65); White Blood Count 10.31 10^3/uL (3.29-11.43)
[2024-07-15 05:39] LABS: Alanine Aminotransferase 7 U/L (0-33); Albumin Level 3.3 g/dL (3.5-5.2); Alkaline Phosphatase 70 U/L (35-105); Aspartate Amino Transferase 15 U/L (0-32); Blood Urea Nitrogen 5 mg/dL (6-20); Calcium 7.7 mg/dL (8.5-10.5); Carbon Dioxide 24 mmol/L (22-29); Chloride 97 mmol/L (98-107); Creatinine Clr Calc Pharmacy 200.0874; Globulin 2.5 g/dL (1.3-4.6); Glomerular Filtration Rate 187.4 mL/min (90-130); Glucose 124 mg/dL (65-115); Osmolality Calculated 269 mOsm/kg (285-295); Sodium 130 mmol/L (136-145); Total Bilirubin 0.3 mg/dL (0.15-1.2); Total Protein 5.8 g/dL (6.6-8.7)
[2024-07-15] MEDS: buprenorphine-naloxone 4-1 mg Film 2 EACH SUBLINGUAL ×2 (09:08→17:14)
--- NOTE | 2024-07-15 13:14 | P.PN_ITS ---
Subjective 2 Subjective: Pain is continuing but states that it is better. She is hungry and wants to start some clears today. Leukocytosis is resolved. Medications: Reviewed: Yes Vitals/I&O/Wt Last Vital Signs Temp 98.5 F 07/15/24 12:14 Pulse 99 07/15/24 12:14 Resp 18 07/15/24 12:14 BP 147/90 07/15/24 12:14 Pulse Ox 93 07/15/24 12:14 O2 Del Method Room Air 07/15/24 12:14 07/14/24 07/15/24 07/15/24 22:59 06:59 14:59 Intake Total 999 910.417 / 2910.417 968.75 / 968.75 Balance 999 910.417 / 2910.417 968.75 / 968.75 Weight last 48 hrs Weight 75.478 kg Weight 74.435 kg Weight 52.163 kg Physical Exam 2 Narrative: General: Awake alert more comfortable compared to yesterday HEENT: PERRLA, pupils bilaterally equal and reactive, pallors not present Chest: Normal vesicular breath sounds, no added sounds, equal good air entry bilaterally CVS: S1-S2 regular, no murmurs, no tachycardia, no gallops, no rubs Abdomen: Soft, tender to palpation over epigastric region, right upper and lower quadrants. Data 07/15/24 04:25 07/15/24 04:25 Micro: Microbiology 07/13/24 16:05 Blood Culture - Preliminary Blood NEGATIVE TO DATE 07/13/24 16:14 Blood Culture - Preliminary Blood NEGATIVE TO DATE A&P Assessment and plan (1) Generalized anxiety disorder: (2) Major depressive disorder, recurrent, moderate: (3) Opioid use disorder, severe, on maintenance therapy, dependence: (4) Methamphetamine use disorder, mild: (5) Pancreatitis: Plan #Acute pancreatitis #Possible cholelithiasis? #Opioid use disorder on Suboxone #History of methamphetamine use disorder #Anxiety/depression ? Continue on LR 150 cc/h ? Check gallbladder ultrasound, CT abdomen pelvis ? Initially lipase 800. No need to trend ? Keep strictly n.p.o. at this time we will gradually transition to clear liquid as patient clinically improves ? Check lipid profile, triglycerides ? Check CBC CMP in a.m. ?Continue Suboxone ? WBC 14,000 possibly reactive however infection cannot be ruled out. D-dimer elevated, CTA chest negative for PE.. ? Morphine 4 mg IV has not helped. Will place on Dilaudid 0.5 every 4 hours as needed. Full code DVT prophylaxis: Heparin subcu. 07/14/2024. Patient complains of significant pain. She is crying in pain. Has not attempted to take any p.o. intake. Does not wish to try even sips of water today. Started Suboxone overnight however has not had much significant difference. Increasing Dilaudid from 0.5 mg every 4 hours to 1 mg IV every 4 hours. Suspect that patient does not need higher dose of opiates because of prior tolerance. Change fluids to D5 normal saline at 150 cc/h. Added incentive spirometer to minimize risk of atelectasis and possible pneumonia developing as a complication. Ultrasound of the gallbladder was completed which did not show any acute findings. Leukocytosis at 12.79, downtrending, no localizing signs or symptoms of infection at this time. Pancreatitis appears triggered by binge alcohol drinking the night prior. Normal triglycerides. 05/15/2024. pain better controlled on Dilaudid 1 mg every 4 hours. States that she is slightly hungry and would like to attempt eating. Abdomen continues to be tender, mildly distended today. States she has not had a bowel movement and has not passed flatus last 24 hours. Will check abdominal x-ray to assess for possible ileus as a result of pancreatitis. If x-ray is reassuring to start clear liquid diet. Encouraged ambulation and out of bed.Continue iv fluids. Attestations 2 Medical Necessity Statement*: X-ray today, concern for ileus, continue pain management, still needing IV Dilaudid for pain management in addition to Suboxone Coding Level of Care Code Acute Code for Chg Fwd Moderate MDM includes number and complexity of problems actively addressed during encounter, amount and/or complexity of data reviewed/ordered and described risk of complication, morbidity or mortality of management as documented Diagnoses Generalized anxiety disorder F41.1 Major depressive disorder, recurrent, moderate F33.1 Opioid use disorder, severe, on maintenance therapy, dependence F11.20 Methamphetamine use disorder, mild F15.10 Pancreatitis K85.90
--- NOTE | 2024-07-15 13:18 | XRR_ITS ---
PROCEDURE INFORMATION: Exam: XR Abdomen Exam date and time: 07/15/2024 4:24 PM Age: 28 years old Clinical indication: Abdominal pain; Generalized; Additional info: Assess for ileus TECHNIQUE: Imaging protocol: Radiologic exam of the abdomen. Views: Frontal supine view of the abdomen. 1 View. COMPARISON: CT abdomen pelvis con [id number] 07/13/2024 4:22 PM FINDINGS: Gastrointestinal tract: Stomach is distended with gas. Presence of gas in the colon with feces noted. Bones/joints: No acute osseous abnormality. XR/XR abdomen 1V* [id number] IMPRESSION: No acute findings.
[2024-07-15] MEDS: pantoprazole 40 mg SDV IVP (14:39)
[2024-07-16] VITALS (11 sets, daily range): BP systolic 120–153; BP diastolic 76–86; PULSE 95–121; RESP 15–19; TEMP 36.8–37.6; O2SAT 95–98
[2024-07-16] MEDS: HYDROmorphone 1 mg/mL INJ 1 mL IVP ×4 (03:15→13:21)
[2024-07-16] MEDS: heparin 5,000 unit/mL INJ 1 mL 5000 UNIT SUBCUT ×2 (03:15→16:25)
[2024-07-16] MEDS: dextrose 5%-sod chloride 0.9% 1,000 ML 125 ML IV (03:22)
[2024-07-16 05:39] LABS: Basophils % 0.1 %; Eosinophils # 0.1 10^3/uL (0.0-0.8); Eosinophils % 0.6 %; Hematocrit 37.2 % (36-47); Lymphocytes # 0.8 10^3/uL (0.8-4.8); Lymphocytes % 8.6 %; Mean Corpuscular HGB Conc 32.3 g/dL (30-55); Mean Corpuscular Hemoglobin 31.2 pg (27-33); Mean Corpuscular Volume 96.6 fl (85-98); Mean Platelet Volume 9.4 fL (7.4-10.4); Monocytes # 0.7 10^3/uL (0.2-0.9); Monocytes % 7.9 %; Neutrophils # 7.17 10^3/uL (1.8-7.7); Neutrophils % 82.3 %; Nucleated Red Blood Cells % 0 %; Platelet Count 195 10^3/cmm (157-399); Red Blood Count 3.85 10^6/uL (3.85-5.65); White Blood Count 8.71 10^3/uL (3.29-11.43)
[2024-07-16 06:01] LABS: Alanine Aminotransferase 8 U/L (0-33); Albumin Level 2.8 g/dL (3.5-5.2); Alkaline Phosphatase 103 U/L (35-105); Anion Gap 8.6 (5-19); Aspartate Amino Transferase 18 U/L (0-32); Blood Urea Nitrogen 3 mg/dL (6-20); Calcium 8.3 mg/dL (8.5-10.5); Carbon Dioxide 26 mmol/L (22-29); Chloride 100 mmol/L (98-107); Creatinine Clr Calc Pharmacy 197.4954; Globulin 2.7 g/dL (1.3-4.6); Glomerular Filtration Rate 187.4 mL/min (90-130); Glucose 115 mg/dL (65-115); Osmolality Calculated 269 mOsm/kg (285-295); Potassium 3.6 mmol/L (3.5-5.1); Sodium 131 mmol/L (136-145); Total Bilirubin 0.5 mg/dL (0.15-1.2); Total Protein 5.5 g/dL (6.6-8.7)
[2024-07-16] MEDS: buprenorphine-naloxone 4-1 mg Film 2 EACH SUBLINGUAL ×2 (08:40→17:40)
--- NOTE | 2024-07-16 15:10 | P.PN_ITS ---
Subjective 2 Subjective: Patient feels much better today. Her pain is better controlled. She was able to tolerate the clear liquid diet yesterday. She has even ambulated in the room today. She is in much better spirits. Medications: Reviewed: Yes Vitals/I&O/Wt Last Vital Signs Temp 99.6 F 07/16/24 12:00 Pulse 108 H 07/16/24 12:00 Resp 16 07/16/24 13:21 BP 121/78 07/16/24 12:00 Pulse Ox 98 07/16/24 12:00 O2 Del Method Room Air 07/16/24 12:00 07/16/24 07/16/24 07/16/24 06:59 14:59 22:59 Intake Total 1240 / 4015.833 1820 / 1820 Output Total 900 / 900 Balance 340 / 3115.833 1820 / 1820 Weight last 48 hrs Weight 73.482 kg Weight 75.478 kg Physical Exam 2 Narrative: General: Awake alert pain better controlled HEENT: PERRLA, pupils bilaterally equal and reactive, pallors not present Chest: Normal vesicular breath sounds, no added sounds, equal good air entry bilaterally CVS: S1-S2 regular, no murmurs, no tachycardia, no gallops, no rubs Abdomen: Soft, tender to palpation over epigastric region Data 07/16/24 04:44 07/16/24 04:44 A&P Assessment and plan (1) Generalized anxiety disorder: (2) Major depressive disorder, recurrent, moderate: (3) Opioid use disorder, severe, on maintenance therapy, dependence: (4) Methamphetamine use disorder, mild: (5) Pancreatitis: Plan #Acute pancreatitis #Possible cholelithiasis? #Opioid use disorder on Suboxone #History of methamphetamine use disorder #Anxiety/depression ? Continue on LR 150 cc/h ? Check gallbladder ultrasound, CT abdomen pelvis ? Initially lipase 800. No need to trend ? Keep strictly n.p.o. at this time we will gradually transition to clear liquid as patient clinically improves ? Check lipid profile, triglycerides ? Check CBC CMP in a.m. ?Continue Suboxone ? WBC 14,000 possibly reactive however infection cannot be ruled out. D-dimer elevated, CTA chest negative for PE.. ? Morphine 4 mg IV has not helped. Will place on Dilaudid 0.5 every 4 hours as needed. Full code DVT prophylaxis: Heparin subcu. 07/14/2024. Patient complains of significant pain. She is crying in pain. Has not attempted to take any p.o. intake. Does not wish to try even sips of water today. Started Suboxone overnight however has not had much significant difference. Increasing Dilaudid from 0.5 mg every 4 hours to 1 mg IV every 4 hours. Suspect that patient does not need higher dose of opiates because of prior tolerance. Change fluids to D5 normal saline at 150 cc/h. Added incentive spirometer to minimize risk of atelectasis and possible pneumonia developing as a complication. Ultrasound of the gallbladder was completed which did not show any acute findings. Leukocytosis at 12.79, downtrending, no localizing signs or symptoms of infection at this time. Pancreatitis appears triggered by binge alcohol drinking the night prior. Normal triglycerides. 07/15/2024. pain better controlled on Dilaudid 1 mg every 4 hours. States that she is slightly hungry and would like to attempt eating. Abdomen continues to be tender, mildly distended today. States she has not had a bowel movement and has not passed flatus last 24 hours. Will check abdominal x-ray to assess for possible ileus as a result of pancreatitis. If x-ray is reassuring to start clear liquid diet. Encouraged ambulation and out of bed.Continue iv fluids. 07/16/2024 Pain is much better controlled today. Patient would like to advance her diet today. Advance to GI soft. Transition IV pain management to oral with hydrocodone APAP 5/325 every 4 hours as needed. Abdominal less distended today. Abdominal x-ray negative for ileus, showed gassy distention. Able to ambulate today. Following ambulation she did pass flatus. Overall feeling better. If tolerates GI soft diet over the next 24 hours and pain is adequately controlled will likely discharge. Attestations 2 Medical Necessity Statement*: Improving pancreatitis. Advance diet today. Transition pain management from IV to oral meds. If does well with these interventions anticipate discharge tomorrow Coding Level of Care Code Acute Code for Chg Fwd Moderate MDM includes number and complexity of problems actively addressed during encounter, amount and/or complexity of data reviewed/ordered and described risk of complication, morbidity or mortality of management as documented Diagnoses Generalized anxiety disorder F41.1 Major depressive disorder, recurrent, moderate F33.1 Opioid use disorder, severe, on maintenance therapy, dependence F11.20 Methamphetamine use disorder, mild F15.10 Pancreatitis K85.90
[2024-07-16] MEDS: HYDROcodone-acetaminophen 5-325 mg Tablet 1 TAB PO ×2 (16:26→20:56)
[2024-07-16] MEDS: pantoprazole 40 mg SDV IVP (16:26)
[2024-07-17] MEDS: HYDROcodone-acetaminophen 5-325 mg Tablet 1 TAB PO ×2 (02:59→09:08)
[2024-07-17] MEDS: heparin 5,000 unit/mL INJ 1 mL 5000 UNIT SUBCUT (03:00)
[2024-07-17 04:00] VITALS: BP 134/80; PULSE 99; RESP 16; TEMP 36.9; O2SAT 97
[2024-07-17 05:28] LABS: Basophils % 0.1 %; Eosinophils # 0.1 10^3/uL (0.0-0.8); Hematocrit 35.8 % (36-47); Lymphocytes # 0.9 10^3/uL (0.8-4.8); Lymphocytes % 11.1 %; Mean Corpuscular HGB Conc 32.1 g/dL (30-55); Mean Corpuscular Hemoglobin 31.2 pg (27-33); Mean Platelet Volume 9.7 fL (7.4-10.4); Monocytes # 0.7 10^3/uL (0.2-0.9); Monocytes % 8.4 %; Neutrophils % 78.9 %; Nucleated Red Blood Cells % 0 %; Platelet Count 224 10^3/cmm (157-399); Red Blood Count 3.69 10^6/uL (3.85-5.65); Red Cell Distribution Width 12.8 % (12.1-15.1); White Blood Count 8.36 10^3/uL (3.29-11.43)
[2024-07-17 06:01] LABS: Alanine Aminotransferase 23 U/L (0-33); Albumin Level 2.9 g/dL (3.5-5.2); Alkaline Phosphatase 190 U/L (35-105); Anion Gap 12.6 (5-19); Aspartate Amino Transferase 52 U/L (0-32); Blood Urea Nitrogen 3 mg/dL (6-20); Calcium 8.7 mg/dL (8.5-10.5); Carbon Dioxide 25 mmol/L (22-29); Chloride 100 mmol/L (98-107); Creatinine Clr Calc Pharmacy 198.6732; Glomerular Filtration Rate 187.4 mL/min (90-130); Glucose 113 mg/dL (65-115); Osmolality Calculated 275 mOsm/kg (285-295); Potassium 3.6 mmol/L (3.5-5.1); Sodium 134 mmol/L (136-145); Total Bilirubin 0.7 mg/dL (0.15-1.2); Total Protein 5.9 g/dL (6.6-8.7)
[2024-07-17 07:40] VITALS: BP 124/81; PULSE 99; RESP 15; TEMP 36.7; O2SAT 97
[2024-07-17] MEDS: buprenorphine-naloxone 4-1 mg Film 2 EACH SUBLINGUAL (09:08)
[2024-07-17 11:53] VITALS: BP 126/81; PULSE 103; RESP 15; TEMP 36.9; O2SAT 97
--- NOTE | 2024-07-17 12:25 | PC.NURSE ---
Discharge Note Patient discharged to home via private vehicle accompanied by mother. 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 Mobile pharmacy medications and/or prescriptions provided. Belongings/home medications returned.
[2024-07-17 12:26] VITALS: BP 126/81; PULSE 103; RESP 15; TEMP 36.9; O2SAT 97
--- NOTE | 2024-07-17 14:17 | PM.DCS ---
Discharge Providers Date of Admission: 07/13/24 14:44 Date of Discharge: July 17, 2024 Attending Provider at Admission: Juani Fisher MD Attending Provider at Discharge: Kenna Love MD Primary Care Provider: Alex Johnson Diagnoses at Discharge Discharge Diagnosis (1) Generalized anxiety disorder: Status: Acute (2) Major depressive disorder, recurrent, moderate: Status: Acute (3) Opioid use disorder, severe, on maintenance therapy, dependence: Status: Acute (4) Pancreatitis: Status: Acute Reason for Visit Reason for Visit: Chest pain, Lt Arm Pain Hospital Course Hospital Course Gretta Doe is a 28 year old female with past medical history of depression, methamphetamine use disorder, opiate use disorder on Suboxone now presented to the hospital with abdominal pain. She was found to have elevated lipase and also CT of the abdomen and pelvis revealed evidence of acute interstitial edematous pancreatitis. There was no evidence of necrotizing or peripancreatic abscess. There was a small amount of fluid in the abdomen and pelvis likely secondary to pancreatitis. Etiology of pancreatitis was thought to be alcohol related as patient had had binge drinking the night prior. Triglyceride level was normal. Patient was treated with bowel rest, diet was slowly advanced during course of admission to [facility] now. Pain management was with IV Dilaudid initially, thereafter transition to oral Suboxone at her maintenance dosing and as needed hydrocodone APAP. Patient improved with IV fluids, pain management, nausea management and bowel rest. She is feeling much improved today and being discharged home in improved condition. Recommended to follow-up with her primary care provider in the next 7 to 10 days. Alcohol abstinence counseling provided Physical Exam Narrative: General: No acute distress, AO x3 HEENT: PERRLA, pupils bilaterally equal and reactive, pallors not present Chest: Normal vesicular breath sounds, no added sounds, equal good air entry bilaterally CVS: S1-S2 regular, no murmurs, no tachycardia, no gallops, no rubs Abdomen: Soft, nontender, no organomegaly, bowel sounds present Neuro: No focal deficits, no facial deformity, AO x3, power 5/5 in all limbs Discharge Data Studies Completed and Pending Completed Studies During Hospitalization Category Date Time Status CT abdomen pelvis wo con [id number] Stat Cat Scan 07/13/24 15:[address] angio chest PE protcl [id number] Stat Cat Scan 07/13/24 11:48 Completed XR abdomen 1V* [id number] Routine Exams 07/15/24 13:18 Completed XR chest 1V portable [id number] Stat Exams 07/13/24 10:11 Completed US gall bladder [id number] Stat Ultrasound 07/13/24 15:11 Completed Pending at discharge Category Date Time Status Blood Culture Routine Lab 07/13/24 16:05 Results Radiology Impressions Chest X-Ray 07/13/24 10:11 Impression: Negative chest. Chest CTA 07/13/24 11:48 IMPRESSION: 1. No pulmonary embolism. 2. No RIGHT heart strain. 3. Findings of acute pancreatitis. Moderate amount of fluid surrounding an edematous enlarged pancreas. Fluid extends along the pararenal fascia, greatest on the LEFT. No encapsulated fluid collections. 4. Fluid extends between the gallbladder and the pancreatic head. Consider evaluation of the gallbladder to exclude cholelithiasis. Common bile duct does not appear enlarged on this examination. Abdomen/Pelvis CT 07/13/24 15:11 IMPRESSION: 1. Findings compatible with acute interstitial edematous pancreatitis. No evidence of necrotizing pancreatitis or peripancreatic abscess. 2. Small volume fluid in the abdomen and pelvis likely secondary to pancreatitis. Gallbladder Ultrasound 07/13/24 15:11 IMPRESSION: 1. No acute findings. 2. Possible pulsatile flow in the main portal vein which can be seen with tricuspid regurgitation among other etiologies. Abdomen X-Ray 07/15/24 13:18 IMPRESSION: No acute findings. Laboratory Results WBC 8.36 10^3/uL (3.29-11.43) 07/17/24 04:41 RBC 3.69 10^6/uL (3.85-5.65) L 07/17/24 04:41 Hgb 11.50 g/dL (11.27-16.99) 07/17/24 04:41 Hct 35.8 % (36-47) L 07/17/24 04:41 MCV 97.0 fl (85-98) 07/17/24 04:41 MCH 31.2 pg (27-33) 07/17/24 04:41 MCHC 32.1 g/dL (30-55) 07/17/24 04:41 RDW 12.8 % (12.1-15.1) 07/17/24 04:41 Plt Count 224 10^3/cmm (157-399) 07/17/24 04:41 MPV 9.7 fL (7.4-10.4) 07/17/24 04:41 Neut % (Auto) 78.9 % 07/17/24 04:41 Lymph % (Auto) 11.1 % 07/17/24 04:41 Bertie % (Auto) 8.4 % 07/17/24 04:41 Eos % (Auto) 1.0 % 07/17/24 04:41 Baso % (Auto) 0.1 % 07/17/24 04:41 Neut # (Auto) 6.60 10^3/uL (1.8-7.7) 07/17/24 04:41 Lymph # (Auto) 0.9 10^3/uL (0.8-4.8) 07/17/24 04:41 Bertie # (Auto) 0.7 10^3/uL (0.2-0.9) 07/17/24 04:41 Eos # (Auto) 0.1 10^3/uL (0.0-0.8) 07/17/24 04:41 Baso # (Auto) 0.0 10^3/uL (0.0-0.1) 07/17/24 04:41 Nucleated RBC % (auto) 0 % 07/17/24 04:41 Nucleated RBCs # 0.0 /100WBC 07/17/24 04:41 D-Dimer 0.90 ug/mLFEU (0-0.59) H 07/13/24 10:46 Sodium 134 mmol/L (136-145) L 07/17/24 04:41 Potassium 3.6 mmol/L (3.5-5.1) 07/17/24 04:41 Chloride 100 mmol/L (98-107) 07/17/24 04:41 Carbon Dioxide 25 mmol/L (22-29) 07/17/24 04:41 Anion Gap 12.6 (5-19) 07/17/24 04:41 BUN 3 mg/dL (6-20) L 07/17/24 04:41 Creatinine 0.4 mg/dL (0.5-0.9) L 07/17/24 04:41 GFR Calculation 187.4 mL/min (90-130) H 07/17/24 04:41 Glucose 113 mg/dL (65-115) 07/17/24 04:41 Calculated Osmolality 275 mOsm/kg (285-295) L 07/17/24 04:41 Lactic Acid 0.7 mmol/L (0.5-2.2) 07/13/24 16:14 Calcium 8.7 mg/dL (8.5-10.5) 07/17/24 04:41 Phosphorus 3.5 mg/dL (2.5-4.5) 07/14/24 04:56 Magnesium 1.7 mg/dL (1.7-2.3) 07/14/24 04:56 Total Bilirubin 0.7 mg/dL (0.15-1.2) 07/17/24 04:41 AST 52 U/L (0-32) H 07/17/24 04:41 ALT 23 U/L (0-33) 07/17/24 04:41 Alkaline Phosphatase 190 U/L (35-105) H 07/17/24 04:41 Troponin T Baseline < 6 ng/L (0-10) 07/13/24 10:46 Troponin T 120 Minute 6.00 ng/L (0-10) 07/13/24 12:45 Delta Troponin T 0.73811 ABS# (0-10) 07/13/24 12:45 Troponin T Hi Sens 6Hr 6.00 ng/L (0-10) 07/13/24 16:05 Troponin T Hi Sens 6Hr Delta 0.30053 ng/L (0-12) 07/13/24 16:05 Total Protein 5.9 g/dL (6.6-8.7) L 07/17/24 04:41 Albumin 2.9 g/dL (3.5-5.2) L 07/17/24 04:41 Globulin 3.0 g/dL (1.3-4.6) 07/17/24 04:41 Triglycerides 100 mg/dL (0-150) 07/13/24 16:05 Cholesterol 186 mg/dL (0-200) 07/13/24 16:05 LDL Cholesterol, Calc 83 mg/dL (50-129) 07/13/24 16:05 HDL Cholesterol 83 mg/dL (60-100) 07/13/24 16:05 LDL/HDL Ratio 1.00 RATIO (0.00-3.22) 07/13/24 16:05 Cholesterol/HDL Ratio 2.24 mg/dL (0.0-4.40) 07/13/24 16:05 Lipase 800 U/L (13-60) H 07/13/24 12:45 TSH 0.70 uIU/mL (0.27-4.20) 07/13/24 16:05 Coronavirus (PCR) Negative (Negative) 07/13/24 11:22 Influenza A (PCR) Negative (Negative) 07/13/24 11:22 Influenza Type B (PCR) Negative (Negative) 07/13/24 11:22 RSV (PCR) Negative (Negative) 07/13/24 11:22 Vitals Last Vital Signs Temp 98.5 F 07/17/24 12:26 Pulse 103 H 07/17/24 12:26 Resp 15 07/17/24 12:26 BP 126/81 07/17/24 12:26 Pulse Ox 97 07/17/24 12:26 O2 Del Method Room Air 07/17/24 11:53 Discharge Plan Discharge Patient Disposition: Home Condition: Stable Prescriptions: New hydrocodone-acetaminophen 5-325 mg Tablet 1 tab PO Q8H PRN (Reason: Moderate Pain) 5 Days Qty: 15 0RF pantoprazole [Protonix] 40 mg tablet,delayed release (DR/EC) 40 mg PO DAILY 28 Days Qty: 30 0RF hydrocodone-acetaminophen 5-325 mg tablet 1 tab PO Q8H PRN (Reason: pain) 1 Days Qty: 3 0RF Continued trazodone 50 mg tablet 100 mg PO .HS PRN (Reason: insomnia) Qty: 60 2RF buprenorphine-naloxone 8-2 mg tablet, sublingual 1 tab sublingual BID Qty: 60 2RF ibuprofen [Advil] 200 mg Tablet 800 mg PO Q6H PRN (Reason: Pain) Discharge Orders: Discharge Order (Routine); Ordered 07/17/24 Ordered By: Kenna Love Referrals: Alex Johnson MD [Primary Care Provider] - 4-7 days (You will need to call your primary care tomrrow and make and appointment for 4-7 days from now.) Discharge Diet: Advance as tolerated and GI Soft Discharge Activity: Resume usual activity Patient Instructions: Hydrocodone/Acetaminophen (By mouth), Pantoprazole (By mouth), Pancreatitis (DC), Low Fat Diet (DC), Abuse of Alcohol (DC), Opioid Safety Discharge Attestations Time Spent in Discharge Care*: greater than 30 min Quality Metrics Clinical Quality Measures [ No reported AMI, CVA or VTE this stay] Coding Level of Care Code Acute Code for Chg Fwd Diagnoses Generalized anxiety disorder F41.1 Major depressive disorder, recurrent, moderate F33.1 Opioid use disorder, severe, on maintenance therapy, dependence F11.20 Pancreatitis K85.90
== END 2024-07-17 14:00 | disposition home or self-care (01) | DRG 439 ==
LOC: ER 10:34 → MEDSURG 14:44
PROVIDERS: Admitting Provider Internal Medicine; Emergency Provider Family Medicine; Family Provider Family Medicine; PCP Family Medicine; Visit Provider Student in an Organized Health Care Education/Training Program
DX: K85.21 Alcohol induced acute pancreatitis with uninfected necrosis (principal); F11.20 Opioid dependence, uncomplicated; F33.1 Major depressive disorder, recurrent, moderate; F15.90 Other stimulant use, unspecified, uncomplicated; F10.90 Alcohol use, unspecified, uncomplicated; F41.1 Generalized anxiety disorder
CPT/HCPCS: 0241U; 36415; 71045; 71275; 74018; 74176; 76705; 80053; 80061; 83605; 83690; 83735; 84100; 84443; 84484; 85025; 85378; 87040; 93005; 96372; 96374; 96375; 99285; J0573; J1100; J1171; J1644; J1885; J2270; J2405; J2470; J7030; J7042; J7120

== ENCOUNTER → 2024-10-28 10:38 | Outpatient (BNVA) | payer OTHER, SELFPAY | PROVIDERS: Family Provider Family Medicine; PCP Family Medicine; Visit Provider Psychiatry & Neurology Psychiatry | DX: F11.20 Opioid dependence, uncomplicated (principal); Z79.899 Other long term (current) drug therapy | CPT/HCPCS: 80307 ==

== ENCOUNTER → 2025-01-27 12:03 | Outpatient (BNVA) | payer OTHER, SELFPAY | PROVIDERS: Family Provider Family Medicine; PCP Family Medicine; Visit Provider Psychiatry & Neurology Psychiatry | DX: F11.20 Opioid dependence, uncomplicated (principal); F15.10 Other stimulant abuse, uncomplicated; Z79.899 Other long term (current) drug therapy | CPT/HCPCS: 80307 ==

== ENCOUNTER → 2025-05-09 15:09 | Outpatient (BNVA) | payer OTHER, SELFPAY | PROVIDERS: Family Provider Family Medicine; PCP Family Medicine; Visit Provider Psychiatry & Neurology Psychiatry | DX: F11.20 Opioid dependence, uncomplicated (principal); F41.1 Generalized anxiety disorder; F33.1 Major depressive disorder, recurrent, moderate; Z79.899 Other long term (current) drug therapy | CPT/HCPCS: 80307 ==

== ENCOUNTER → 2025-08-09 16:14 | Outpatient (BNVA) | payer OTHER, SELFPAY | PROVIDERS: Family Provider Family Medicine; PCP Family Medicine; Visit Provider Psychiatry & Neurology Psychiatry | DX: F11.20 Opioid dependence, uncomplicated (principal); Z79.899 Other long term (current) drug therapy | CPT/HCPCS: 80307 ==